=== PATIENT | female | born 2000 | race Caucasian/White ===

== ENCOUNTER 2024-12-25 10:19 | Outpatient (AMB) | payer MEDICAID, SELFPAY ==
[2024-12-25 10:31] VITALS: BP 110/70; PULSE 87; RESP 16; TEMP 36.2; O2SAT 98
--- NOTE | 2024-12-25 10:31 | OBCLNT_ITS ---
Vital Signs 12/25/24 10:31 Weight 73.595 kg Weight Measurement Method Standing Scale BP 110/70 Blood Pressure Source Automatic Cuff Blood Pressure Location Left Upper Arm Position Sitting Respiration 16 Pulse 87 Pulse Source Monitor Temp 97.2 F Temp Source Oral Pulse Oximetry (%) 98 Oxygen Delivery Method Room Air Allergies/Home Meds Allergies & Medications Allergies No Known Allergies Allergy (Verified 12/25/24 10:34) Medication Reconciliation No Known Home Medications 12/25/24 [History Confirmed 12/25/24] Intake Visit Data Collection New Patient or Established: Established Patient (seen at [facility] within 3 years) Reason for Visit:: OBC Seen by Clinical Staff ONLY (RN/MA): No Air Route Traffic Controller Required: No Do You Feel Safe at Home: Yes Authorities Contacted: N/A PCP or OBGYN visit in last 3 months: Yes Hx Now: Yes Are you currently on any form of Control: No Last menstrual period: 10/28/24 Pain Present Currently: No Pain Scale Used: Ennis-Dennis/Numerical Pain scale:: 0 Smoking Status Smoking Status: Never smoker Questionnaires Covid-19 Vaccine Questionnaire Has patient been vacinated for Covid-19 Have you been vacinated for Covid-19: No PHQ-9 PHQ-2 Over the last 2 weeks, how often have you been bothered by any of the following problems? 1. Little interest or pleasure in doing things: not at all 2. Feeling down, depressed, or hopeless: not at all Total score: 0 PHQ-9 3. Trouble falling or staying asleep, or sleeping too much: Not at all 4. Feeling tired or having little energy: Not at all 5. Poor appetite or overeating: Not at all 6. Feeling bad about yourself - or that you are a failure or have let yourself or your family down: Not at all 7. Trouble concentrating on things, such as reading the newspaper or watching television: Not at all 8. Moving or speaking so slowly that other people could have noticed? - Or the opposite - being so fidgety or restless that you have been moving around a lot more than usual: not at all 9. Thoughts that you would be better off or of hurting yourself in some way: Not at all Total score: 0 If you checked off any problems, how difficult have these problems made it for you to do your work, take care of things at home, or get along with other people?: not difficult at all Source: Developed by Drs. Sam Garrido, Nat Geronimo, Ovidio Gutierrez and colleagues, with an educational zachary from [employer]. Depression screen completed yes Social History Living Situation History Marital Status: Lives With: Family Housing: House Tobacco History Smoking Status: Never smoker Second Hand Smoke Exposure: No Alcohol History Alcohol Intake: Never Domestic Abuse History Do You Feel Safe at Home: Yes History of Present Illness HPI Narrative 24-year-old 1 para 0 for OBI. Patient is a transfer from [facility]. Last period October 28, 2024. Estimated due date August 04, 2025. Patient denies social habits. Denies surgery. Denies chronic illness. She had a Pap and GC and chlamydia done that were negative. She is O+, antibody screen negative, RPR nonreactive, rubella immune, hepatitis B negative, hep C negative, HIV negative, GC and Chlamydia were negative. She had negative drug screen. Her hemoglobin is 14. And urine analysis was negative. Patient was seen December 22 the [facility] in [place]. It was for bleeding. The baby measured 8 weeks 1 and the estimated due date was by then August 02, 2025 confirmed dates. No bleeding at this time OB Initial Visit OB Flowsheet OB Flowsheet Initial Weight: Not Recorded Date -?-?-?-?-?-?-?-?-?-?-?-?- EGA Weight BP Alb Glu CTX Pres Fundal ht FHR Mov Dilation Station Effacement Hx Notes Visit Note 12/25/24 -?-?-?-?-?-?-?-?-?-?-?-?- 8w 2d 73.595 kg 110/70 frequent unknown 8 145 absent Patient had some spotting early on in the and was seen December 22 and [place]. Sono was done. And the baby was measuring 8 weeks 1 with heart rate. So LMP October 28, 2024. This gives a due date August 04, 2025. Patient is O+, antibody screen negative, RPR nonreactive, rubella immune, hepatitis B negative, hep C negative, HIV negative, and GC and Chlamydia were negative. Patient has normal health screen and no medical issues. Denies social habits. No surgeries Discussed SAB precautions. Reviewed dates. Reviewed labs. NIPT and carrier screen next visit. Schedule with Dr. Roldan because patient prefers female only for NT and anatomy scan. Return in 4 weeks OB check Menstrual History Menstrual reliability: definite Flow: normal Menstrual regularity: regular Monthly: Yes (13) Age at menarche: 13 On control pills at conception: No OB History : 1 Para: 0 Hx # Pregnancies: 0 Hx Total # of Abortions (Spontaneous & Elective): 0 # of Living Children: 0 Infection History & Risk Evaluation History of STDs: none HIV risk evaluation: low risk Hepatitis B risk evaluation: low risk Patient or partner has history of Genital Herpes: No Varicella/chicken pox status: immunized Genetic Screening & History Genetic Screening/Teratology Counseling - Includes patient, baby's father, or anyone in either family with: 1. Patient's age 35 years or older as of estimated date of delivery: No 2. Thalassemia (Upper Sorbian, Portuguese, Mediterranean, or Background); MCV less than 80: No 3. Neural Tube Defect (Meningomyelocele, Spina Bifida, or Anencephaly): No 4. Congenital Heart Defect: No 5. Down Syndrome: No 6. Derrek-Sachs (Ashkenazi Taoism, Cajun, [place]): No 7. Lucio Disease (Ashkenazi Taoism): No 8. Familial Dysautonomia (Ashkenazi Taoism): No 9. Sickle Cell Disease or Trait (): No 10. Hemophilia or other blood disorders: No 11. Muscular Dystrophy: No 12. Cystic Fibrosis: No 13. Andreea's Chorea: No 14. Mental Retardation/Autism: No 15. Other inherited genetic or chromosomal disorder: No 16. Maternal Metabolic Disorder (EG,TYPE 1 Diabetes, PKU): No 17. Patient or baby's father had a child with defects not listed above: No 18. Recurrent loss or a stillbirth: No 19. Medications (including supplements, vitamins, herbs or otc drugs)/illicit/recreational drugs/alcohol since last menstrual period: No 20. Any other: No Infection History 1. Live with someone with TB or exposed to TB: No 2. Rash or viral illness since last menstrual period: No 3. Hepatitis B,C: No Other (see comments) Source: [employer] Review of Systems Review of Systems Systems Reviewed: All systems reviewed, normal except as documented Exam General Limitations: no limitations General Appearance: alert, in no apparent distress, comfortable, cooperative, healthy appearing, well developed and well groomed Head Head exam: atraumatic, normocephalic and normal inspection Resp Respiratory exam: Present normal lung sounds bilaterally Card Cardiovascular exam: Present regular rate, normal rhythm and normal heart sounds Abdominal Abdominal exam: Present soft and normal bowel sounds Psych Psychiatric exam: Present normal affect and normal mood Office Procedures OB Clinic LOC & Office Proc's Nursing/Assessment Patient Status: Initial/New Patient OB Clinic Nursing Assessment: Medication Reconciliation, Update PMH in EMR and Vital Signs OB Clinic Coordination of Care: Education Complex Pt/Fam, Consent,records obtained, informed consent, Lab and Imaging orders, Results/Orders obtained and Staff clarify orders Special Needs: Heart tones New Patient Charge New Patient Point Assignment: [id number] New Patient Point Charge: LUMPIA WRAPPER MAKER Level 3 (3994-6430) Assessment & Plan Diagnosis / Problem List (1) Encounter for supervision of high risk in first trimester, antepartum: Status: Acute Plan Discussed SAB precautions. Continue vitamins. Comfort measures for heartburn and discussed [id number] meds she can take. Schedule with maternal- medicine Dr. Roldan for and a NT scan and anatomy scan. Increase fluids and rest. Return in 3 weeks for NIPT and carrier screening Additional Plan Follow Up: 3 Weeks (obc)
== END 2024-12-25 11:05 | disposition home or self-care (01) ==
PROVIDERS: Supervising Provider Advanced Practice Midwife; Visit Provider Advanced Practice Midwife
DX: O09.91 Supervision of high risk pregnancy, unspecified, first trimester (principal); Z3A.08 8 weeks gestation of pregnancy
CPT/HCPCS: 99203; G0463

== ENCOUNTER 2025-01-15 10:40 | Outpatient (AMB) | payer MEDICAID, SELFPAY ==
[2025-01-15 11:03] VITALS: BP 109/74; PULSE 94; RESP 18; TEMP 36.7; O2SAT 97; BMI 27.3
--- NOTE | 2025-01-15 11:03 | OBCLNT_ITS ---
Vital Signs 01/15/25 11:03 Height 1.63 m Height Method Stated Weight 72.121 kg Weight Measurement Method Standing Scale BMI 27.3 BP 109/74 Blood Pressure Source Automatic Cuff Blood Pressure Location Left Upper Arm Position Sitting Respiration 18 Pulse 94 Pulse Source Monitor Temp 98.0 F Temp Source Oral Pulse Oximetry (%) 97 Oxygen Delivery Method Room Air Allergies/Home Meds Allergies & Medications Allergies No Known Allergies Allergy (Verified 01/15/25 11:04) Medication Reconciliation No Known Home Medications 12/25/24 [History Confirmed 01/15/25] Intake Visit Data Collection New Patient or Established: Established Patient (seen at [facility] within 3 years) Reason for Visit:: CARE Seen by Clinical Staff ONLY (RN/MA): No Optical Mechanic Apprentice Required: No Do You Feel Safe at Home: Yes Authorities Contacted: N/A PCP or OBGYN visit in last 3 months: Yes Hx Now: Yes Are you currently on any form of Control: No Pain Present Currently: No Pain Scale Used: Ennis-Dennis/Numerical Pain scale:: 0 Smoking Status Smoking Status: Never smoker Questionnaires Covid-19 Vaccine Questionnaire Has patient been vacinated for Covid-19 Have you been vacinated for Covid-19: Yes PHQ-9 PHQ-2 Over the last 2 weeks, how often have you been bothered by any of the following problems? 1. Little interest or pleasure in doing things: not at all 2. Feeling down, depressed, or hopeless: not at all Total score: 0 PHQ-9 3. Trouble falling or staying asleep, or sleeping too much: Not at all 4. Feeling tired or having little energy: Not at all 5. Poor appetite or overeating: Not at all 6. Feeling bad about yourself - or that you are a failure or have let yourself or your family down: Not at all 7. Trouble concentrating on things, such as reading the newspaper or watching television: Not at all 8. Moving or speaking so slowly that other people could have noticed? - Or the opposite - being so fidgety or restless that you have been moving around a lot more than usual: not at all 9. Thoughts that you would be better off or of hurting yourself in some way: Not at all Total score: 0 Source: Developed by Nat LairdW. Juanpablo, Ovidio Gutierrez and colleagues, with an educational zachary from [employer]. Depression screen completed yes Social History Living Situation History Lives With: Family Housing: House Tobacco History Smoking Status: Never smoker Second Hand Smoke Exposure: No Alcohol History Alcohol Intake: Never Domestic Abuse History Do You Feel Safe at Home: Yes Care OB Visit Log OB Flowsheet Initial Weight: Not Recorded Date -?-?-?-?-?-?-?-?-?-?-?-?- EGA Weight BP Alb Glu CTX Pres Fundal ht FHR Mov Dilation Station Effacement Hx Notes Visit Note 12/25/24 -?-?-?-?-?-?-?-?-?-?-?-?- 8w 2d 73.595 kg 110/70 frequent unknown 8 145 absent Patient had some spotting early on in the and was seen December [address] [place]. Sono was done. And the baby was measuring 8 weeks 1 with heart rate. So LMP October 28, 2024. This gives a due date August 04, 2025. Patient is O+, antibody screen negative, RPR nonreactive, rubella immune, hepatitis B negative, hep C negative, HIV negative, and GC and Chlamydia were negative. Patient has normal health screen and no medical issues. Denies social habits. No surgeries Discussed SAB precautions. Reviewed dates. Reviewed labs. NIPT and carrier screen next visit. Schedule with Dr. Roldan because patient prefers female only for NT and anatomy scan. Return in 4 weeks OB check 01/15/25 -?-?-?-?-?-?-?-?-?-?-?-?- 11w 2d 72.121 kg 109/74 absent unknown 11 156 absent Complains of cough and cold today. She has had those symptoms for 3 days. No sore throat. No temperature. Denies signs symptoms of SAB Return in 4 weeks OB check. Anatomy scan for February 02. NIPT and carrier screens today. Discussed comfort measures for cough and cold along with ER precautions and signs symptoms of infection. [facility] Calculator Estimated Delivery Date Method Current WG Current Estimate 08/04/25 LMP (Certain) 11w 2d Other Estimates 08/02/25 Ultrasound #1 11w 4d Notes Visit Date: 01/15/25 Last Updated by: Sherrie Cano CNM OB panel: O+,abs-, rpr;;nr, rub imm, hbsag-,hiv-,HC-, GC/CT-UA-/UT-, Visit Date: 12/25/24 Last Updated by: Sherrie Cano CNM 24 yo . LMP: 10/28/24. EDC: 08/04/25. sono done 12/22/24: IUP 8w1. EDC: 08/02/25 Office Procedures OB Clinic LOC & Office Proc's Nursing/Assessment Patient Status: Established Patient OB Clinic Nursing Assessment: Medication Reconciliation, Update PMH in EMR and Vital Signs OB Clinic Coordination of Care: Complex Care and Chronic Disease 1-5, Consent,records obtained, informed consent, Education Simp Pt/Fam, 1 Ins Authorization, Lab and Imaging orders, Results/Orders obtained and Staff clarify orders Special Needs: Heart tones Established Patient Charge Established Patient Point Assignment: 150 Established Patient Point Charge: EP Level 4 (120-155) Assessment & Plan Diagnosis / Problem List (1) Encounter for supervision of high risk in first trimester, antepartum: Status: Acute Plan SAB precautions. Comfort measures for cold and soft. Discussed danger signs and symptoms and ER precautions. NIPT and carrier screen today. Patient has anatomy scan for February 02. Return in 4 weeks OB check, f/u scan: 02/02 Additional Plan Follow Up: 4 Weeks (obc)
== END 2025-01-15 12:08 | disposition home or self-care (01) ==
LOC: HODSOBC 10:40
PROVIDERS: Supervising Provider Advanced Practice Midwife; Visit Provider Advanced Practice Midwife
DX: O09.891 Supervision of other high risk pregnancies, first trimester (principal); Z3A.11 11 weeks gestation of pregnancy
CPT/HCPCS: 99214; G0463

== ENCOUNTER 2025-04-13 10:44 | Outpatient (AMB) | payer MEDICAID, SELFPAY ==
[2025-04-13 11:12] VITALS: BP 115/79; PULSE 100; RESP 18; TEMP 36.7; O2SAT 98; BMI 31.2
--- NOTE | 2025-04-13 11:12 | AMB.OBPNC ---
Vital Signs 04/13/25 11:12 Height 1.63 m Height Method Stated Weight 83.007 kg Weight Measurement Method Standing Scale BMI 31.2 BP 115/79 Blood Pressure Source Automatic Cuff Blood Pressure Location Left Upper Arm Position Sitting Respiration 18 Pulse 100 Pulse Source Monitor Temp 98.0 F Temp Source Oral Pulse Oximetry (%) 98 Oxygen Delivery Method Room Air Allergies/Home Meds Allergies & Medications Allergies No Known Allergies Allergy (Verified 04/13/25 11:13) Medication Reconciliation No Known Home Medications 12/25/24 [History Confirmed 04/13/25] Immunizations Immunizations Flu Vaccine in the Last 12 Months: No Flu Vaccine Exclusion Criteria: Refused by Patient Care OB Visit Log OB Flowsheet Initial Weight: Not Recorded Date <del>?</del> EGA Weight BP Alb Glu CTX Pres Fundal ht FHR Mov Dilation Station Effacement Hx Notes Visit Note 12/25/24 <del>?</del> 8w 2d 73.595 kg 110/70 frequent unknown 8 145 absent Patient had some spotting early on in the and was seen December 22 and [place]. Sono was done. And the baby was measuring 8 weeks 1 with heart rate. So LMP October 28, 2024. This gives a due date August 04, 2025. Patient is O+, antibody screen negative, RPR nonreactive, rubella immune, hepatitis B negative, hep C negative, HIV negative, and GC and Chlamydia were negative. Patient has normal health screen and no medical issues. Denies social habits. No surgeries Discussed SAB precautions. Reviewed dates. Reviewed labs. NIPT and carrier screen next visit. Schedule with Dr. Roldan because patient prefers female only for NT and anatomy scan. Return in 4 weeks OB check 01/15/25 <del>?</del> 11w 2d 72.121 kg 109/74 absent unknown 11 156 absent Complains of cough and cold today. She has had those symptoms for 3 days. No sore throat. No temperature. Denies signs symptoms of SAB Return in 4 weeks OB check. Anatomy scan for February 02. NIPT and carrier screens today. Discussed comfort measures for cough and cold along with ER precautions and signs symptoms of infection. 04/13/25 <del>?</del> 23w 6d 83.007 kg 115/79 absent unknown 23 128 active Cough improved. Denies labor complaints. Reports movement. Again no OB complaints Cough improved. Denies labor complaints. Reports movement. Again no OB complaints. Two-vessel umbilical cord noted echo was ordered. f/u 6 week Order third trimester labs. Discussed labor precautions. Increase fluids. Patient will have a follow-up ultrasound scheduled by [facility] Order third trimester labs. Discussed labor precautions. Increase fluids. Patient will have a follow-up ultrasound scheduled by [facility]. 2 vessel umb cord, f/u 6 wk, ECHO [facility] Calculator Estimated Delivery Date Method Current WG Current Estimate 08/04/25 LMP (Certain) 23w 6d Other Estimates 08/02/25 Ultrasound #1 24w 1d 08/04/25 Ultrasound #2 23w 6d 08/04/25 Manual 23w 6d final [facility] 08/04/25 Notes Visit Date: 04/13/25 Last Updated by: Sherrie Cano CNM NIPT: neg/girl, sma-,CF- sono 04/06/25: 2 vessel cord, single L artery Visit Date: 01/15/25 Last Updated by: Sherrie Cano CNM OB panel: O+,abs-, rpr;;nr, rub imm, hbsag-,hiv-,HC-, GC/CT-UA-/UT-, Visit Date: 12/25/24 Last Updated by: Sherrie Cano CNM 24 yo . LMP: 10/28/24. EDC: 08/04/25. sono done 12/22/24: IUP 8w1. EDC: 08/02/25 Office Procedures OBC Clinic LOC & Office Proc's Nursing/Assessment Patient Status: Established Patient OB Clinic Nursing Assessment: Medication Reconciliation, Update PMH in EMR and Vital Signs OB Clinic Coordination of Care: Consent,records obtained, informed consent, Education Simp Pt/Fam, Lab and Imaging orders, Results/Orders obtained and Staff clarify orders Special Needs: Heart tones Established Patient Charge Established Patient Point Assignment: 110 Established Patient Point Charge: EP Level 3 (80-115) Assessment & Plan Diagnosis / Problem List (1) Encounter for supervision of high risk in second trimester, antepartum: Status: Acute Plan Follow-up medicine ultrasound in 6 weeks for two-vessel cord. Discussed labor precautions. Ordered third trimester labs. Continue prenatals. Return in 4 weeks OB check Additional Plan Follow Up: 4 Weeks (obc)
== END 2025-04-13 12:29 | disposition home or self-care (01) ==
LOC: HODSOBC 10:44
PROVIDERS: Supervising Provider Advanced Practice Midwife; Visit Provider Advanced Practice Midwife
DX: O09.892 Supervision of other high risk pregnancies, second trimester (principal); O69.89X0 Labor and delivery complicated by other cord complications, not applicable or unspecified; Z3A.23 23 weeks gestation of pregnancy; Z28.21 Immunization not carried out because of patient refusal
CPT/HCPCS: 99213; G0463